=== PATIENT | male | born 1970 | race Caucasian/White ===

== ENCOUNTER 2020-09-20 10:53 | Outpatient (REF) | payer OTHER, SELFPAY ==
[2020-09-20 11:43] LABS: MANUAL DIFF FLAG NO
[2020-09-20 11:46] LABS: Basophils Percent Auto 0.7 % (0-2); Eosinophils Percent Auto 0.5 % (0-4); Hematocrit 44.5 % (42-52); Hemoglobin 14.9 g/dl (14.0-18.0); Imm Gran Abs Auto 0.01 X10*3/uL (0.00-0.03); Imm Gran Pct Auto 0.2 % (0.0-0.4); Lymphocytes Absolute Auto 1.2 X10*3/uL (1.2-4.9); Lymphocytes Percent Auto 26.7 % (20-40); Mean Corpuscular HGB Conc 33.5 g/dl (31.0-36.0); Mean Corpuscular Hemoglobin 31.4 pg (27.0-33.0); Mean Corpuscular Volume 93.7 fL (80-98); Mean Platelet Volume 10.5 fL (9.4-12.4); Monocytes Absolute Auto 0.3 X10*3/uL (0.1-1.2); Monocytes Percent Auto 5.9 % (2-11); Neutrophils Absolute Auto 2.9 X10*3/uL (2.0-8.3); Platelet Count 186 X10*3/uL (160-400); Red Blood Count 4.75 X10*6/uL (4.60-5.80); Red Cell Distribution Width 12.4 % (11.0-16.0); White Blood Count 4.4 X10*3/uL (4.8-10.8)
[2020-09-20 12:08] LABS: Alanine Aminotransferase 14 U/L (0-40); Albumin Level 4.5 g/dL (3.5-5.0); Alkaline Phosphatase 59 U/L (39-117); Anion Gap 13 (12-20); Aspartate Amino Transferase 16 U/L (5-37); Bilirubin Total 0.9 mg/dL (0.0-1.0); Blood Urea Nitrogen 18 mg/dL (9-16); Calcium 9.5 mg/dL (8.4-10.2); Carbon Dioxide 27 mmol/L (22-29); Chloride 108 mmol/L (96-108); Cholesterol 171 mg/dL; Estimated Glomerular Filt Rate > 60; Glucose Fasting 87 mg/dL (60-99); HDL Cholesterol 45 mg/dL; LDL Cholesterol Calculated 120 mg/dl; Potassium 5.1 mmol/L (3.3-5.1); Sodium 143 mmol/L (135-145); Total Protein 7.1 g/dL (6.5-8.0); Triglycerides 34 mg/dL
[2020-09-20 12:29] LABS: Prostate Specific Antigen Scr 1.31 ng/mL (<0.05-4.0); TSH reflex Free T4 1.01 uIU/mL (0.32-4.0); Vitamin D 25-OH Total 71.3 ng/mL (>30)
[2020-09-20 12:50] LABS: Glucose Urine UA NEG (NEG); Leukocyte Esterase Urine NEG (NEG); Nitrite Urine NEG (NEG); Specific Gravity - Urine >= 1.030 (1.005-1.025); Urine Blood NEG (NEG); Urine Ketones NEG (NEG); Urine Protein NEG (NEG-TRACE)
[2020-09-20 12:52] LABS: Appearance Urine CLEAR; Color Urine YELLOW
== END 2020-09-20 10:54 | disposition home or self-care (01) ==
LOC: HO.LAB 10:53
PROVIDERS: PCP Internal Medicine; Visit Provider Internal Medicine
DX: Z00.00 Encounter for general adult medical examination without abnormal findings (principal); E55.9 Vitamin D deficiency, unspecified; R19.5 Other fecal abnormalities
CPT/HCPCS: 36415; 80053; 80061; 81003; 82306; 84153; 84443; 85025

== ENCOUNTER 2021-09-17 10:22 | Outpatient (REF) | payer OTHER, SELFPAY ==
[2021-09-17 10:46] LABS: MANUAL DIFF FLAG NO
[2021-09-17 11:47] LABS: Basophils Percent Auto 0.7 % (0-2); Eosinophils Percent Auto 0.2 % (0-4); Hemoglobin 14.7 g/dl (14.0-18.0); Imm Gran Abs Auto 0.01 X10*3/uL (0.00-0.03); Imm Gran Pct Auto 0.2 % (0.0-0.4); Lymphocytes Percent Auto 16.3 % (20-40); Mean Corpuscular HGB Conc 33.4 g/dl (31.0-36.0); Mean Corpuscular Hemoglobin 31.2 pg (27.0-33.0); Mean Corpuscular Volume 93.4 fL (80.0-98.0); Mean Platelet Volume 10.9 fL (9.4-12.4); Monocytes Absolute Auto 0.3 X10*3/uL (0.1-1.2); Monocytes Percent Auto 5.1 % (2-11); Neutrophils Absolute Auto 4.6 x10*3/uL (2.0-8.3); Neutrophils Percent Auto 77.5 % (45-73); Platelet Count 191 X10*3/uL (160-400); Red Blood Count 4.71 X10*6/uL (4.60-5.80); Red Cell Distribution Width 12.7 % (11.0-16.0); White Blood Count 5.9 X10*3/uL (4.8-10.8)
[2021-09-17 12:30] LABS: Alanine Aminotransferase 11 U/L (0-40); Albumin Level 4.2 g/dL (3.5-5.0); Alkaline Phosphatase 59 U/L (39-117); Anion Gap 14 (12-20); Aspartate Amino Transferase 14 U/L (5-37); Bilirubin Total 0.8 mg/dL (0.0-1.0); Blood Urea Nitrogen 12 mg/dL (9-16); Calcium 8.9 mg/dL (8.4-10.2); Carbon Dioxide 27 mmol/L (22-29); Chloride 104 mmol/L (96-108); Cholesterol 157 mg/dL; Estimated Glomerular Filt Rate > 60; Glucose Fasting 84 mg/dL (60-99); HDL Cholesterol 46 mg/dL; LDL Cholesterol Calculated 103 mg/dl; Potassium 4.5 mmol/L (3.3-5.1); Sodium 140 mmol/L (135-145); Total Protein 6.9 g/dL (6.5-8.0); Triglycerides 43 mg/dL
[2021-09-17 12:38] LABS: Prostate Specific Antigen 1.26 ng/mL (<0.05-4.0); TSH reflex Free T4 1.51 uIU/mL (0.32-4.0); Vitamin D 25-OH Total 53.8 ng/mL (>30)
[2021-09-17 13:08] LABS: Folate 17.4 ng/mL (> or = 4.0); Vitamin B12 372 pg/mL (200-900)
== END 2021-09-17 10:23 | disposition home or self-care (01) ==
LOC: HO.LAB 10:22
PROVIDERS: PCP Internal Medicine; Visit Provider Nurse Practitioner Family
DX: Z00.00 Encounter for general adult medical examination without abnormal findings (principal); Z12.5 Encounter for screening for malignant neoplasm of prostate; Z13.29 Encounter for screening for other suspected endocrine disorder; Z13.220 Encounter for screening for lipoid disorders; E55.9 Vitamin D deficiency, unspecified
CPT/HCPCS: 36415; 80053; 80061; 82306; 82607; 82746; 84153; 84443; 85025

== ENCOUNTER 2022-09-04 09:00 | Outpatient (AMB) | payer OTHER, SELFPAY ==
--- NOTE | 2022-09-04 09:03 | A.OFFPC_ITS ---
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: No Accompanied by: Self / Same As Patient Allergies No Known Allergies [No Known Allergies*] Allergy (Verified 09/04/22 09:05) Medication List - Last Reconciled 09/04/22 by Kailash Sorenson MD No Known Home Meds Tobacco use date assessed: 09/04/22 Dental Screening Dental Screen Date: 09/04/22 Did you have a dental visit in the last 12 months?: Yes Did you have a dental problem in the last 6 months where you did not have access to dental care?: No Was dental information given to patient?: Patient has dentist HPI PE HPI Details Patient comes in today for his annual physical examination Relates that he strained his right elbow about 4 months ago (thinks that he has a tennis elbow ) and that his elbow is still bothering him at present Admits that he has not really cut back on activities that involves extended use of his right arm as he is right-handed Has been doing some physical therapy exercises on his own for the past few weeks, which he states help but is still not able to get his elbow issues resolved completely States that he feels okay otherwise He denies any headaches or dizziness Denies any chest pains, no SOB No nausea/vomiting, no abdominal pain No change in bowel habits noted Denies any acute urinary symptoms Had a negative Cologuard test done a couple of years ago in 2020; still does not wish to go for a regular screening colonoscopy at this time [facility] Medical History Vitamin D deficiency Surgical History History of left knee surgery History of rotator cuff surgery (~01/2016) Status post arthroscopy of right shoulder Family History Mother No problems noted. 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 1. Little interest or pleasure in doing things: not at all 2. Feeling down, depressed, or hopeless: not at all 3. Trouble falling or staying asleep, or sleeping too much: not at all 4. Feeling tired or having little energy: not at all 5. Poor appetite or overeating: not at all 6. Feeling bad about yourself - or that you are a failure or have let yourself or your family down: not at all 7. Trouble concentrating on things, such as reading the newspaper or watching television: not at all 8. Moving or speaking so slowly that other people could have noticed. Or the opposite - being so fidgety or restless that you have been moving around a lot more than usual: not at all 9. Thoughts that you would be better off or of hurting yourself in some way: not at all Total score: 0 Depression Screening Interpretation: Negative 84818 - PHQ-9 Billing: Yes Source: Developed by Drs. Javier Dang, Arabella Mckeon, Adams Archibald and colleagues, with an educational shant from [employer]. Thrive Questionnaire Date Thrive assessed: 09/04/22 I am a: Patient What is your living situation today?: I have a steady place to live Within the past 12 months, did the food you bought not last and you didn't have the money to get more?: Never true Within the past 12 months, did you worry whether your food would run out before you got money to buy more?: Never true Do you have trouble paying for medicines?: No Do you have trouble getting transportation to medical appointments?: No Do you have trouble paying your heating and electricity bill?: No Do you have trouble taking care of your child, family member or friend?: No Do you have trouble with day-to-day activities such as bathing, preparing meals, shopping, managing finances, etc.?: No Are you currently unemployed and looking for a job?: No Are you interested in more education?: No Please select the resources that you would like help with: None Currently or been in a relationship where the following occur: no concerns reported AUDIT C Alcohol Use Questionnaire (AUDIT-C) 1. How often do you have a drink containing alcohol?: Monthly or less 2. How many drinks containing alcohol do you have on a typical day when you are drinking?: 1 or 2 3. How often do you have six or more drinks on one occasion?: Never Total Score: 1 Score Reviewed/Action Taken: Yes FLORENCIO-7 AMB Questionnaire FLORENCIO-7 Date FLORENCIO - 7 assessed: 09/04/22 Feeling nervous, anxious, or on edge: 0 = Not at all Not being able to stop or control worryin = Not at all Worrying too much about different things: 0 = Not at all Trouble relaxin = Not at all Being so restless that it is hard to sit still: 0 = Not at all Becoming easily annoyed or irritable: 0 = Not at all Feeling afraid as if something awful might happen: 0 = Not at all Total FLORENCIO-7 score (0-4 normal; 5-9 mild; 10-14 moderate; 15-21 severe): 0 Source: Developed by Drs. Javier Dang, Arabella Mckeon, Adams Archibald and colleagues, with an educational shant from [employer]. FLORENCIO-7 Assessment Billing FLORENCIO-7 Assessment Tool: FLORENCIO-7 Assessment 03160 Review of Systems Const Denies chills, Denies fatigue, Denies fever(s), Denies headache(s), Denies malaise and Denies weakness Eyes Denies blurry vision, Denies change in vision, Denies irritation and Denies itchy eyes ENT Denies dysphagia, Denies dizziness, Denies otalgia, Denies headache(s), Denies nasal congestion, Denies neck pain, Denies odynophagia and Denies sore throat Card Denies chest pain, Denies rapid heart rate, Denies irregular heart rhythm, Denies palpitations and Denies dyspnea Resp Denies chest congestion, Denies cough, Denies dyspnea and Denies wheezing GI Denies abdominal pain, Denies bloating, Denies constipation, Denies dysphagia, Denies heartburn, Denies diarrhea, Denies nausea, Denies odynophagia and Denies vomiting Denies hematuria, Denies difficulty urinating, Denies dysuria, Denies urinary frequency and Denies urinary urgency Musc Denies back pain, Reports arthralgias (over the right elbow, recurrent), Denies joint swelling, Denies muscle weakness and Denies neck pain Skin/Breast Denies change in pigmentation, Denies lesions, Denies rash and Denies unusual bruising Neuro Denies dizziness, Denies headache(s), Denies paresthesias and Denies weakness Endo Denies fatigue and Denies palpitations Aller/Immun Denies itchy eyes and Denies wheezing Physical exam (Primary Care) Vital Signs: Oxygen Delivery Method Room Air 09/04/22 09:04 Tobacco/Smoking Status: Tobacco use Status Tobacco use date assessed 09/17/21 09/17/21 09:59 Patient Tobacco Use Status Never used Tobacco 09/17/21 09:59 Depression Screening Interpretation: Negative Thrive Assessment: Date of Thrive Assessment Date Thrive assessed 09/17/21 09/17/21 09:59 Currently or been in a relationship where the following occur: no concerns reported Const General: no acute distress, alert and awake Orientation/consciousness: patient oriented x3 HENMT Head: Yes normocephalic and Yes atraumatic Ears: external ears normal, TM's normal bilaterally and EAC's normal General nose exam: No nasal discharge present Face and sinus: Yes normal facial exam and Yes sinuses nontender Teeth and gingiva: dentition normal Throat: Yes posterior oropharynx normal and Yes tonsils normal (no TP congestion) Eyes Eyelids: Yes eyelids normal Conjunctivae: conjunctivae normal Pupils: Equal, round and reactive pupils present EOM: EOMs intact bilaterally Neck Neck: Yes no lymphadenopathy and Yes supple Thyroid: Thyroid normal Resp Auscultation: clear to auscultation bilaterally, no rales and no wheezes Cardio Rate: regular rate Rhythm: regular rhythm Heart sounds: no murmurs GI Palpation (GI): Soft to palpation, nontender and No hepatosplenomegaly present Auscultation: normal bowel sounds General: Yes no CVA tenderness Back/Spine/Pelvis Back: no CVA tenderness Thoracic/Lumbar Spine: thoracic and lumbar spine normal to inspection Skin Lesions: no lesions Rashes: no rashes Neuro General: patient oriented x3, moves all extremities, no focal motor deficits and CN's II-XI intact bilaterally Cranial nerves: Yes Equal, round and reactive pupils present Cognition (Neuro): normal cognition Gait exam (Neuro): Normal gait present Extrem General: Yes no clubbing, cyanosis or edema Right upper extremity: elbow/forearm Details: tenderness Location: of the lateral epicondyle and normal ROM; no swelling Assessment and Plan Assessment & Plan (1) Annual physical exam: Code(s): Z00.00 - Encounter for general adult medical examination without abnormal findings Plan: Check labs Patient had a negative Cologuard test a couple of years ago in 2020; will be due for repeat Cologuard OR screening colonoscopy next year (2) Vitamin D deficiency: Code(s): E55.9 - Vitamin D deficiency, unspecified Plan: Corrected when checked last year Will recheck Vitamin D level for follow up (3) Right elbow pain: Code(s): M25.521 - Pain in right elbow Plan: Most likely due to lateral epicondylitis Will send him for x-rays of the right elbow for further evaluation Recommend trial of physical therapy but patient states that he has been doing what he thinks physical therapy will do for him and would rather not go so he does not have to take time off from work Will print out instead for patient a physical therapy regimen for him to follow up as best as he can so the therapy that he is doing on his own is more structured; reminded to avoid any activities that can aggravate his elbow as much as possible, at least for the next few weeks Advised that he can call at any time if he feels that his elbow injury is getting worse May take OTC NSAIDs as needed Plan To return in 1 year for his next annual physical examination Orders: Orders XR elbow RT min 3V Today M25.521 - Pain in right elbow Comprehensive [place]. Panel Fast Today R53.83 - Other fatigue, Z00.00 - Encounter for general adult medical examination without abnormal findings Lipid Panel Today E78.00 - Pure hypercholesterolemia, unspecified, Z00.00 - Encounter for general adult medical examination without abnormal findings Prostate Specific Antigen Scr Today Z00.00 - Encounter for general adult medical examination without abnormal findings TSH reflex Free T4 Today R53.83 - Other fatigue, Z00.00 - Encounter for general adult medical examination without abnormal findings Vitamin D 25-OH Total Today E55.9 - Vitamin D deficiency, unspecified, Z00.00 - Encounter for general adult medical examination without abnormal findings Complete Blood Count Auto Diff Today Z00.00 - Encounter for general adult medical examination without abnormal findings UA CC w/rflx Micro + Cult Today R30.0 - Dysuria, Z00.00 - Encounter for general adult medical examination without abnormal findings Coding Level of Care Code Est Pt Prev Care 40-64y(76583) Diagnoses Annual physical exam Z00.00 Vitamin D deficiency E55.9 Right elbow pain M25.521 Additional Codes FLORENCIO-7 Assessment Billing - FLORENCIO-7 Assessment Tool: FLORENCIO-7 Assessment 12569 ([id number])
[2022-09-04 09:04] VITALS: BP 110/60; O2SAT 98; BMI 24.1
== END 2022-09-04 09:35 | disposition home or self-care (01) ==
PROVIDERS: PCP Internal Medicine; Visit Provider Internal Medicine
DX: Z00.00 Encounter for general adult medical examination without abnormal findings (principal); E55.9 Vitamin D deficiency, unspecified; M25.521 Pain in right elbow
CPT/HCPCS: 99396

== ENCOUNTER 2022-09-04 09:41 | Outpatient (REF) | payer OTHER, SELFPAY ==
--- NOTE | ~2022-09-04 | XR_ITS ---
EXAMINATION: XR ELBOW, RIGHT CLINICAL INFORMATION: Pain. COMPARISON: None available. TECHNIQUE: AP, lateral, and oblique views of the right elbow. FINDINGS: The bones and soft tissues are normal. No fracture or joint effusion. Alignment is anatomic. Joint spaces are maintained. A small enthesophyte arises from the olecranon process. XR/XR elbow RT min 3V IMPRESSION: Unremarkable right elbow.
[2022-09-04 09:53] LABS: MANUAL DIFF FLAG NO
[2022-09-04 10:21] LABS: Basophils Percent Auto 0.8 % (0-2); Eosinophils Percent Auto 0.8 % (0-4); Hemoglobin 14.1 g/dl (14.0-18.0); Imm Gran Abs Auto 0.01 X10*3/uL (0.00-0.03); Imm Gran Pct Auto 0.3 % (0.0-0.4); Lymphocytes Absolute Auto 1.2 X10*3/uL (1.2-4.9); Lymphocytes Percent Auto 31.2 % (20-40); Mean Corpuscular HGB Conc 32.8 g/dl (31.0-36.0); Mean Corpuscular Hemoglobin 31.2 pg (27.0-33.0); Mean Corpuscular Volume 95.1 fL (80.0-98.0); Mean Platelet Volume 10.7 fL (9.4-12.4); Monocytes Absolute Auto 0.2 X10*3/uL (0.1-1.2); Monocytes Percent Auto 6.2 % (2-11); Neutrophils Absolute Auto 2.2 x10*3/uL (2.0-8.3); Neutrophils Percent Auto 60.7 % (45-73); Platelet Count 192 X10*3/uL (160-400); Red Blood Count 4.52 X10*6/uL (4.60-5.80); Red Cell Distribution Width 13.3 % (11.0-16.0); White Blood Count 3.7 X10*3/uL (4.8-10.8)
[2022-09-04 10:22] LABS: Appearance Urine Turbid; Color Urine Yellow; Glucose Urine UA Negative (Negative); Leukocyte Esterase Urine Negative (Negative); Nitrite Urine Negative (Negative); Specific Gravity - Urine 1.025 (1.005-1.025); Urine Blood Negative (Negative); Urine Ketones Negative (Negative); Urine Protein Negative (Neg-Trace)
[2022-09-04 11:00] LABS: Alanine Aminotransferase 14 U/L (0-40); Albumin Level 4.2 g/dL (3.5-5.0); Alkaline Phosphatase 62 U/L (39-117); Anion Gap 14 (12-20); Aspartate Amino Transferase 18 U/L (5-37); Bilirubin Total 0.7 mg/dL (0.0-1.0); Blood Urea Nitrogen 17 mg/dL (9-16); Calcium 9.2 mg/dL (8.4-10.2); Carbon Dioxide 25 mmol/L (22-29); Chloride 107 mmol/L (96-108); Cholesterol 173 mg/dL; Estimated Glomerular Filt Rate > 60; Glucose Fasting 88 mg/dL (60-99); HDL Cholesterol 49 mg/dL; LDL Cholesterol Calculated 116 mg/dl; Potassium 4.6 mmol/L (3.3-5.1); Sodium 141 mmol/L (135-145); Total Protein 6.9 g/dL (6.5-8.0); Triglycerides 43 mg/dL
[2022-09-04 11:16] LABS: Prostate Specific Antigen Scr 1.28 ng/mL (<0.05-4.0); TSH reflex Free T4 1.19 uIU/mL (0.32-4.0); Vitamin D 25-OH Total 67.7 ng/mL (>30)
== END 2022-09-04 09:42 | disposition home or self-care (01) ==
LOC: HO.LAB 09:41
PROVIDERS: PCP Internal Medicine; Visit Provider Internal Medicine
DX: Z12.5 Encounter for screening for malignant neoplasm of prostate (principal); M25.521 Pain in right elbow; E78.00 Pure hypercholesterolemia, unspecified; E55.9 Vitamin D deficiency, unspecified; R53.83 Other fatigue; R30.0 Dysuria; Z00.00 Encounter for general adult medical examination without abnormal findings
CPT/HCPCS: 36415; 73080; 80053; 80061; 81003; 82306; 84153; 84443; 85025

== ENCOUNTER 2022-12-11 11:28 | Outpatient (AMB) | payer OTHER, SELFPAY ==
--- NOTE | 2022-12-11 11:31 | MHC.OFFVIS ---
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 Patient reports that he has had onoging elbow pain for about 7 months now. He explains that he is having. His pain is felt on the lateral aspect of the elbow worse with activity and better with rest. he is not taking any medication for his pain. 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 He complains of pain in his right elbow & forearm primarily with grasping, lifting, and gripping activities. He has been doing home exercises for suspected Tennis elbow since April, and his PCP provided a handout of exercises he can perform. He did not want to take time off of work for formal PT. He denies any prior treatment and is not taking NSAIDs. He says he found no relief wearing a counter-force brace. He says it is difficult to not use his arm as he is right-handed, and he was a member of a Golf league so was frequently playing 9-holes over the summer. He says he made his pain worse at times by lifting dumbbells when he was bored of not doing anything He is planning to go on vacation next week and is unsure about receiving injections. 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 [facility] Medical History Vitamin D deficiency Surgical History History of rotator cuff surgery (~01/2016) History of left knee surgery Status post arthroscopy of right shoulder Family History Mother No problems noted. 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 Cognitive needs: No Hearing needs: No Vision needs: Yes (reading) Review of Systems Const All systems reviewed & are unremarkable except as noted in HPI and below Physical Exam Vital Signs: BMI result Body Mass Index 24.1 Const General: no acute distress, alert and awake Orientation/consciousness: patient oriented x3 HEENT Head: Yes normocephalic and Yes atraumatic Eyes EOM: EOMs intact bilaterally Resp Effort & Inspection: normal respiratory effort and able to speak in complete sentences Cardio Jugular venous distension: no JVD Skin General skin exam: turgor normal Rashes: no rashes Neuro General: patient oriented x3 Extrem Other: Right Elbow: Pain with resisted wrist ext ttp lateral epicondyle Psych Appearance: grossly normal Affect: normal affect Attitude: cooperative Office Procedures Joint Injection/Drain Joint Injection/Drain Details: Injected 1 mL of Decadron and 1 mL 1% lidocaine and 1 mL of 0.25% Marcaine. Site was prepped using aseptic technique. Patient tolerated the procedure well. Primary Site: right tennis elbow Approach Used: posterolateral Coding 59954 - Epicondyle Procedure code (CPT) selection complete Results Reviewed Results Reviewed: 12/11/22 11:48 BUPivacaine MPF 0.25 % [Sensorcaine-MPF 0.25% 10 ML] 10 ml .ROUTE .STK-MED ONE Lidocaine HCl 1 % [Xylocaine 1 %] 2 ml .ROUTE .STK-MED ONE dexAMETHasone sod phosphate [Decadron] 4 mg .ROUTE .STK-MED ONE Assessment & Plan Assessment & Plan (1) Right lateral epicondylitis: Code(s): M77.11 - Lateral epicondylitis, right elbow Plan: This is a 52 year old man with right lateral epicondylitis. He has pain with use of his arm, primarily gripping and lifting activities. He denies any prior treatment, has been doing home exercise and has not been taking NSAIDs. I discussed his diagnosis and treatment options, including PRP injections. I recommend activity modification and bracing. I injected his right lateral epicondyle, which he tolerated well, and he should continue to work on stretching exercises at home. I explained that recovery can take several months and he should limit or avoid activities such as gripping with his RUE when possible. He can follow up prn. Plan Scribed for Colin Garcia MD by Grey King, lpn medical assistant, on 12/11/22 at 11:40 AM, EST. Coding Level of Care Code New Pt Level 4 (57191) Diagnoses Right lateral epicondylitis M77.11 CPT Codes Coding - Joint 2: 19986 - Epicondyle ([id number])
[2022-12-11 11:34] VITALS: BMI 24.1
== END 2022-12-11 12:22 | disposition home or self-care (01) ==
PROVIDERS: PCP Internal Medicine; Visit Provider Orthopaedic Surgery
DX: M77.11 Lateral epicondylitis, right elbow (principal)
CPT/HCPCS: 20550; 99204

== ENCOUNTER → 2022-12-11 11:28 | Outpatient (BNVA) | payer OTHER, SELFPAY | PROVIDERS: PCP Internal Medicine; Visit Provider Orthopaedic Surgery | DX: M77.11 Lateral epicondylitis, right elbow (principal); E55.9 Vitamin D deficiency, unspecified | CPT/HCPCS: 20550; J0665; J1100 ==

== ENCOUNTER 2023-01-22 09:30 | Outpatient (AMB) | payer OTHER, SELFPAY ==
--- NOTE | 2023-01-22 09:36 | MHC.OFFVIS ---
Intake Intake Visit Reasons: Right Lateral Epicondylitis Injection Intake Note: Kenny is a 52 year old male who presents today for a follow up of his right lateral epicondylitis. Last injected on 12/11/22. Patient also reports that he injured the left shoulder on wednesday01/16/23. He has history of RTC repair and is concerned that he reinjured. Allergies No Known Allergies [No Known Allergies*] Allergy (Verified 01/22/23 09:39) HPI Right Lateral Epicondylitis Injection HPI Details Kenny is a 52 year old right hand dominant man who returns to discuss his right lateral epicondylitis. He was last seen, and injected, on 12/11/22, with some relief. He continues to have pain with use of his arm, worse with gripping activities. He also says he hurt his left shoulder on 01/16/23. He has a hx of a left RTC repair and is worried he may have re-injured his shoulder. [facility] Medical History Vitamin D deficiency Surgical History History of rotator cuff surgery (~01/2016) History of left knee surgery Status post arthroscopy of right shoulder Family History Mother No problems noted. 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 Cognitive needs: No Hearing needs: No Vision needs: Yes (reading) Review of Systems Const All systems reviewed & are unremarkable except as noted in HPI and below Physical Exam Const General: no acute distress, alert and awake Orientation/consciousness: patient oriented x3 HEENT Head: Yes normocephalic and Yes atraumatic Eyes EOM: EOMs intact bilaterally Resp Effort & Inspection: normal respiratory effort and able to speak in complete sentences Cardio Jugular venous distension: no JVD Skin General skin exam: turgor normal Rashes: no rashes Neuro General: patient oriented x3 Extrem Other: mild ttp right lateral epicondyle and mildly + dynamic wrist ext test left shoulder with painful but negative empty can Psych Appearance: grossly normal Affect: normal affect Attitude: cooperative Assessment & Plan Assessment & Plan (1) Right lateral epicondylitis: Code(s): M77.11 - Lateral epicondylitis, right elbow Plan: We had a long discussion regarding his right elbow. He has chronic mild symptoms and did not feel any better after injection. i recommend activity modification and reserve injection forflare ups. We discussed prp. He will consider this (2) Left shoulder pain: Code(s): M25.512 - Pain in left shoulder Plan: Acute pain without evidence of internal derangement. Plan Scribed for Colin Garcia MD by Grey King, medical insurance claims processor, on 01/22/23 at 9:45 AM, EST. Coding Level of Care Code Est Pt Level 3 (13249) Diagnoses Right lateral epicondylitis M77.11 Left shoulder pain M25.512
== END 2023-01-22 10:11 | disposition home or self-care (01) ==
PROVIDERS: PCP Internal Medicine; Visit Provider Orthopaedic Surgery
DX: M77.11 Lateral epicondylitis, right elbow (principal); M25.512 Pain in left shoulder
CPT/HCPCS: 99213

== ENCOUNTER → 2023-01-22 09:30 | Outpatient (BNVA) | payer OTHER, SELFPAY | PROVIDERS: PCP Internal Medicine; Visit Provider Orthopaedic Surgery | DX: M77.11 Lateral epicondylitis, right elbow (principal); M25.512 Pain in left shoulder | CPT/HCPCS: J0665; J1100 ==

== ENCOUNTER 2023-07-23 08:58 | Outpatient (AMB) | payer OTHER, SELFPAY ==
--- NOTE | 2023-07-23 09:16 | A.OFFPC_ITS ---
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: No Accompanied by: Self / Same As Patient Allergies No Known Allergies [No Known Allergies*] Allergy (Verified 07/23/23 09:27) Medication List - Last Reconciled 07/23/23 by Kailash Sorenson MD No Known Home Meds Tobacco use date assessed: 07/23/23 Dental Screening Dental Screen Date: 07/23/23 Did you have a dental visit in the last 12 months?: Yes Did you have a dental problem in the last 6 months where you did not have access to dental care?: No Was dental information given to patient?: Patient has dentist HPI Annual Exam HPI Details Patient comes in today for his annual physical examination States that he feels okay but still has recurrent right elbow pain He denies any headaches or dizziness Denies any chest pains, no SOB No nausea/vomiting, no abdominal pain No change in bowel habits noted Denies any acute urinary symptoms PFSH Medical History Vitamin D deficiency Surgical History History of rotator cuff surgery (~01/2016) History of left knee surgery Status post arthroscopy of right shoulder Family History Mother No problems noted. 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 1. Little interest or pleasure in doing things: not at all 2. Feeling down, depressed, or hopeless: not at all 3. Trouble falling or staying asleep, or sleeping too much: not at all 4. Feeling tired or having little energy: not at all 5. Poor appetite or overeating: not at all 6. Feeling bad about yourself - or that you are a failure or have let yourself or your family down: not at all 7. Trouble concentrating on things, such as reading the newspaper or watching television: not at all 8. Moving or speaking so slowly that other people could have noticed. Or the opposite - being so fidgety or restless that you have been moving around a lot more than usual: not at all 9. Thoughts that you would be better off or of hurting yourself in some way: not at all Total score: 0 Depression Screening Interpretation: Negative Depression Screening Done: Yes 79938 - PHQ-9 Billing: Yes Source: Developed by Drs. Javier Dang, Arabella Mckeon, Adams Archibald and colleagues, with an educational shant from [employer]. Thrive Questionnaire Date Thrive assessed: 07/23/23 I am a: Patient What is your living situation today?: I have a steady place to live Within the past 12 months, did the food you bought not last and you didn't have the money to get more?: Never true Within the past 12 months, did you worry whether your food would run out before you got money to buy more?: Never true Do you have trouble paying for medicines?: No Do you have trouble getting transportation to medical appointments?: No Do you have trouble paying your heating and electricity bill?: No Do you have trouble taking care of your child, family member or friend?: No Do you have trouble with day-to-day activities such as bathing, preparing meals, shopping, managing finances, etc.?: No Are you currently unemployed and looking for a job?: No Are you interested in more education?: No Please select the resources that you would like help with: None Currently or been in a relationship where the following occur: no concerns reported THRIVE Score: 0 AUDIT C Alcohol Use Questionnaire (AUDIT-C) 1. How often do you have a drink containing alcohol?: Monthly or less 2. How many drinks containing alcohol do you have on a typical day when you are drinking?: 1 or 2 3. How often do you have six or more drinks on one occasion?: Never Total Score: 1 Score Reviewed/Action Taken: Yes FLORENCIO-7 AMB Questionnaire FLORENCIO-7 Date FLORENCIO - 7 assessed: 07/23/23 Feeling nervous, anxious, or on edge: 0 = Not at all Not being able to stop or control worryin = Not at all Worrying too much about different things: 0 = Not at all Trouble relaxin = Not at all Being so restless that it is hard to sit still: 0 = Not at all Becoming easily annoyed or irritable: 0 = Not at all Feeling afraid as if something awful might happen: 0 = Not at all Total FLORENCIO-7 score (0-4 normal; 5-9 mild; 10-14 moderate; 15-21 severe): 0 Source: Developed by Drs. Javier Dang, Arabella Mckeon, Adams Archibald and colleagues, with an educational shant from [employer]. FLORENCIO-7 Assessment Billing FLORENCIO-7 Assessment Tool: FLORENCIO-7 Assessment 07995 Review of Systems Const Denies chills, Denies fatigue, Denies fever(s), Denies headache(s), Denies malaise and Denies weakness Eyes Denies blurry vision, Denies change in vision, Denies irritation and Denies itchy eyes ENT Denies dysphagia, Denies dizziness, Denies otalgia, Denies headache(s), Denies nasal congestion, Denies neck pain, Denies odynophagia and Denies sore throat Card Denies chest pain, Denies rapid heart rate, Denies irregular heart rhythm, Denies palpitations and Denies dyspnea Resp Denies chest congestion, Denies cough, Denies dyspnea and Denies wheezing GI Denies abdominal pain, Denies bloating, Denies constipation, Denies dysphagia, Denies heartburn, Denies diarrhea, Denies nausea, Denies odynophagia and Denies vomiting Denies hematuria, Denies difficulty urinating, Denies dysuria, Denies urinary frequency and Denies urinary urgency Musc Denies back pain, Reports arthralgias (on and off, over the right elbow), Denies joint swelling, Denies muscle weakness and Denies neck pain Skin/Breast Denies change in pigmentation, Denies lesions, Denies rash and Denies unusual bruising Neuro Denies dizziness, Denies headache(s), Denies paresthesias and Denies weakness Endo Denies fatigue and Denies palpitations Aller/Immun Denies itchy eyes and Denies wheezing Physical exam (Primary Care) Vital Signs: Last Vital Signs Pulse 58 07/23/23 09:19 BP 108/68 07/23/23 09:19 Pulse Ox 99 07/23/23 09:19 Oxygen Delivery Method Room Air 07/23/23 09:19 BMI result Body Mass Index 24.3 Tobacco/Smoking Status: Tobacco use Status Tobacco use date assessed 07/23/23 07/23/23 09:24 Patient Tobacco Use Status Never used Tobacco 07/23/23 09:16 e-Cigarette/Vaping Use Never Used 07/23/23 09:24 PHQ-9: PHQ-9 Score PHQ-9: Total score 0 07/23/23 09:24 Depression Screening Interpretation: Negative Thrive Assessment: Date of Thrive Assessment Date Thrive assessed 07/23/23 07/23/23 09:24 Currently or been in a relationship where the following occur: no concerns reported Const General: no acute distress, alert and awake Orientation/consciousness: patient oriented x3 HENMT Head: Yes normocephalic and Yes atraumatic Ears: external ears normal, TM's normal bilaterally and EAC's normal General nose exam: No nasal discharge present Face and sinus: Yes normal facial exam and Yes sinuses nontender Teeth and gingiva: dentition normal Throat: Yes posterior oropharynx normal and Yes tonsils normal (no TP congestion) Eyes Eyelids: Yes eyelids normal Conjunctivae: conjunctivae normal Pupils: Equal, round and reactive pupils present EOM: EOMs intact bilaterally Neck Neck: Yes no lymphadenopathy and Yes supple Thyroid: Thyroid normal Resp Auscultation: clear to auscultation bilaterally, no rales and no wheezes Cardio Rate: regular rate Rhythm: regular rhythm Heart sounds: no murmurs GI Palpation (GI): Soft to palpation, nontender and No hepatosplenomegaly present Auscultation: normal bowel sounds General: Yes no CVA tenderness Back/Spine/Pelvis Back: no CVA tenderness Thoracic/Lumbar Spine: thoracic and lumbar spine normal to inspection Skin Lesions: no lesions Rashes: no rashes Neuro General: patient oriented x3, moves all extremities, no focal motor deficits and CN's II-XI intact bilaterally Cranial nerves: Yes Equal, round and reactive pupils present Cognition (Neuro): normal cognition Gait exam (Neuro): Normal gait present Extrem General: Yes no clubbing, cyanosis or edema Right upper extremity: elbow/forearm Details: tenderness Location: of the lateral epicondyle Assessment and Plan Assessment & Plan (1) Annual physical exam: Code(s): Z00.00 - Encounter for general adult medical examination without abnormal findings Plan: Check labs Patient had a negative Cologuard test a few years ago in 2020 He is now due for repeat Cologuard OR screening colonoscopy (2) Vitamin D deficiency: Code(s): E55.9 - Vitamin D deficiency, unspecified Plan: Corrected when checked last year Will recheck his Vitamin D level for follow up (3) Right elbow pain: Code(s): M25.521 - Pain in right elbow Plan: Due to lateral epicondylitis X-rays of the right elbow done a few months ago came out completely normal He received a cortisone injection from Dr. Garcia a few months ago with some relief but admits that he started doing some activities that likely aggravated his issue Have advised patient that if his elbow continues to bother him a lot and is affecting his daily activities, he should check back again with orthopedics and consider getting another cortisone injection to help relieve his elbow pain (4) Colon cancer screening: Code(s): Z12.11 - Encounter for screening for malignant neoplasm of colon Plan: Patient had a negative Cologuard test a few years ago in 2020 He is now due for repeat Cologuard OR screening colonoscopy - patient opted to get repeat Cologuard testing done at this time and will order test for him Plan To return in 1 year for his next annual physical examination Orders: Orders Prostate Specific Antigen Scr Today Z00.00 - Encounter for general adult medical examination without abnormal findings Complete Blood Count Auto Diff Today D64.9 - Anemia, unspecified, Z00.00 - Encounter for general adult medical examination without abnormal findings Comprehensive [place]. Panel Fast Today E78.00 - Pure hypercholesterolemia, unspecified, Z00.00 - Encounter for general adult medical examination without abnormal findings Lipid Panel Today E78.00 - Pure hypercholesterolemia, unspecified, Z00.00 - Encounter for general adult medical examination without abnormal findings TSH reflex Free T4 Today E78.00 - Pure hypercholesterolemia, unspecified, Z 00.00 - Encounter for general adult medical examination without abnormal findings UA CC w/rflx Micro + Cult Today R30.0 - Dysuria, Z00.00 - Encounter for general adult medical examination without abnormal findings Vitamin D 25-OH Total Today E55.9 - Vitamin D deficiency, unspecified, Z00.00 - Encounter for general adult medical examination without abnormal findings Referrals Cologuard Test Z12.11 - Encounter for screening for malignant neoplasm of colon, Z12.12 - Encounter for screening for malignant neoplasm of rectum Review Patient declined Colonoscopy: 07/23/23 Coding Level of Care Code Est Pt Prev Care 40-64y(42409) Diagnoses Annual physical exam Z00.00 Vitamin D deficiency E55.9 Right elbow pain M25.521 Colon cancer screening Z12.11 Additional Codes FLORENCIO-7 Assessment Billing - FLORENCIO-7 Assessment Tool: FLORENCIO-7 Assessment [id number] ([id number])
[2023-07-23 09:19] VITALS: BP 108/68; PULSE 58; O2SAT 99; BMI 24.3
== END 2023-07-23 09:42 | disposition home or self-care (01) ==
PROVIDERS: PCP Internal Medicine; Visit Provider Internal Medicine
DX: Z00.00 Encounter for general adult medical examination without abnormal findings (principal); E55.9 Vitamin D deficiency, unspecified; M25.521 Pain in right elbow; Z12.11 Encounter for screening for malignant neoplasm of colon
CPT/HCPCS: 99396

== ENCOUNTER 2023-07-23 09:46 | Outpatient (REF) | payer OTHER, SELFPAY ==
[2023-07-23 09:58] LABS: MANUAL DIFF FLAG NO
[2023-07-23 10:50] LABS: Basophils Percent Auto 0.7 % (0-2); Eosinophils Absolute Auto 0.1 X10*3/uL (0.0-0.4); Eosinophils Percent Auto 1.4 % (0-4); Hematocrit 44.6 % (42.0-52.0); Hemoglobin 15.1 g/dl (14.0-18.0); Imm Gran Abs Auto 0.01 X10*3/uL (0.00-0.03); Imm Gran Pct Auto 0.2 % (0.0-0.4); Lymphocytes Absolute Auto 1.2 X10*3/uL (1.2-4.9); Lymphocytes Percent Auto 28.3 % (20-40); Mean Corpuscular HGB Conc 33.9 g/dl (31.0-36.0); Mean Corpuscular Hemoglobin 31.4 pg (27.0-33.0); Mean Corpuscular Volume 92.7 fL (80.0-98.0); Mean Platelet Volume 10.9 fL (9.4-12.4); Monocytes Absolute Auto 0.3 X10*3/uL (0.1-1.2); Monocytes Percent Auto 6.7 % (2-11); Neutrophils Absolute Auto 2.7 x10*3/uL (2.0-8.3); Neutrophils Percent Auto 62.7 % (45-73); Platelet Count 195 X10*3/uL (160-400); Red Blood Count 4.81 X10*6/uL (4.60-5.80); White Blood Count 4.3 X10*3/uL (4.8-10.8)
[2023-07-23 11:08] LABS: Appearance Urine Clear; Color Urine Yellow; Glucose Urine UA Negative (Negative); Leukocyte Esterase Urine Negative (Negative); Nitrite Urine Negative (Negative); PH 6.5 (5.0-9.0); Specific Gravity - Urine 1.025 (1.005-1.025); Urine Blood Negative (Negative); Urine Ketones Negative (Negative); Urine Protein Negative (Neg-Trace)
[2023-07-23 11:34] LABS: Alanine Aminotransferase 13 U/L (0-40); Albumin Level 4.2 g/dL (3.5-5.0); Alkaline Phosphatase 61 U/L (39-117); Anion Gap 10 (12-20); Aspartate Amino Transferase 15 U/L (5-37); Blood Urea Nitrogen 13 mg/dL (9-16); Calcium 9.3 mg/dL (8.4-10.2); Carbon Dioxide 29 mmol/L (22-29); Chloride 106 mmol/L (96-108); Cholesterol 158 mg/dL (<200); Estimated Glomerular Filt Rate > 60; Glucose Fasting 84 mg/dL (60-99); HDL Cholesterol 42 mg/dL (>40); LDL Cholesterol Calculated 103 mg/dL (<100); Potassium 3.9 mmol/L (3.3-5.1); Sodium 141 mmol/L (135-145); Total Protein 6.9 g/dL (6.5-8.0); Triglycerides 65 mg/dL (<150)
[2023-07-23 11:41] LABS: Prostate Specific Antigen Scr 1.58 ng/mL (<0.05-4.0)
[2023-07-23 11:50] LABS: TSH reflex Free T4 1.06 uIU/mL (0.32-4.0); Vitamin D 25-OH Total 47.7 ng/mL (>30)
== END 2023-07-23 09:47 | disposition home or self-care (01) ==
LOC: HO.LAB 09:46
PROVIDERS: PCP Internal Medicine; Visit Provider Internal Medicine
DX: Z00.00 Encounter for general adult medical examination without abnormal findings (principal); D64.9 Anemia, unspecified; E55.9 Vitamin D deficiency, unspecified; E78.00 Pure hypercholesterolemia, unspecified; R30.0 Dysuria; Z12.5 Encounter for screening for malignant neoplasm of prostate
CPT/HCPCS: 36415; 80053; 80061; 81003; 82306; 84153; 84443; 85025

== ENCOUNTER 2024-09-05 14:29 | Outpatient (AMB) | payer OTHER, SELFPAY ==
[2024-09-05 14:33] VITALS: BP 102/60; PULSE 66; RESP 18; TEMP 36.3; O2SAT 95; BMI 24.8
--- NOTE | 2024-09-05 14:33 | A.OFFPC_ITS ---
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: No Accompanied by: Self / Same As Patient Allergies No Known Allergies (No Known Allergies*) Allergy (Verified 09/05/24 14:43) Medication List - Last Reconciled 09/05/24 by RENUKA Ambriz No Known Home Meds Tobacco use date assessed: 09/05/24 Dental Screening Dental Screen Date: 09/05/24 Did you have a dental visit in the last 12 months?: Yes Did you have a dental problem in the last 6 months where you did not have access to dental care?: No Was dental information given to patient?: Patient has dentist HPI annual exam HPI Details Dentist: up to date [facility] reports that he needs to make an appt Snellen: Right: Left: Corrected vision: reading glasses only STI screening: Colonoscopy: cologuard 2023 that was negative Pap Smer:n/a PHQ-9:n/a Flu: not COVID: no Tdap:2014-due Diet: regular Exercise: The patient is very active The patient is a 54-year-old male presenting for a wellness visit and evaluation of persistent heartburn symptoms. The patient reports experiencing heartburn that began after Easter, with symptoms including angina-like chest pain, shoulder pain, and numbness. The symptoms were exacerbated when lying down and seemed to improve with dietary modifications, such as avoiding tomato sauce and pea protein powder. The patient has a history of bilateral shoulder surgeries, which occasionally result in numbness if positioned incorrectly. He attempted a push-up challenge, which aggravated his shoulder pain, leading to a decision to modify his physical activities. The patient also reports a history of tennis elbow, which has improved over time. He expresses concern about the potential recurrence of symptoms due to previous surgical interventions. [facility] Medical History Vitamin D deficiency Surgical History History of rotator cuff surgery (~01/2016) History of left knee surgery Status post arthroscopy of right shoulder Family History Mother No problems noted. 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 1. Little interest or pleasure in doing things: not at all 2. Feeling down, depressed, or hopeless: not at all 3. Trouble falling or staying asleep, or sleeping too much: not at all 4. Feeling tired or having little energy: not at all 5. Poor appetite or overeating: not at all 6. Feeling bad about yourself - or that you are a failure or have let yourself or your family down: not at all 7. Trouble concentrating on things, such as reading the newspaper or watching television: not at all 8. Moving or speaking so slowly that other people could have noticed. Or the opposite - being so fidgety or restless that you have been moving around a lot more than usual: not at all 9. Thoughts that you would be better off or of hurting yourself in some way: not at all Total score: 0 Depression Screening Interpretation: Negative Depression Screening Done: Yes 32101 - PHQ-9 Billing: Yes Source: Developed by Drs. Javier Dang, Arabella Mckeon, Adams Archibald and colleagues, with an educational shant from [employer]. Thrive Questionnaire Date Thrive assessed: 09/05/24 I am a: Patient What is your living situation today?: I have a steady place to live Within the past 12 months, did the food you bought not last and you didn't have the money to get more?: Never true Within the past 12 months, did you worry whether your food would run out before you got money to buy more?: Never true Do you have trouble paying for medicines?: No Do you have trouble getting transportation to medical appointments?: No Do you have trouble paying your heating and electricity bill?: No Do you have trouble taking care of your child, family member or friend?: No Do you have trouble with day-to-day activities such as bathing, preparing meals, shopping, managing finances, etc.?: No Are you currently unemployed and looking for a job?: No Are you interested in more education?: No Please select the resources that you would like help with: None Currently or been in a relationship where the following occur: No concerns reported THRIVE Score: 0 AUDIT C Alcohol Use Questionnaire (AUDIT-C) 1. How often do you have a drink containing alcohol?: Monthly or less 2. How many drinks containing alcohol do you have on a typical day when you are drinking?: 1 or 2 3. How often do you have six or more drinks on one occasion?: Never Total Score: 1 FLORENCIO-7 AMB Questionnaire FLORENCIO-7 Date FLORENCIO - 7 assessed: 09/05/24 Feeling nervous, anxious, or on edge: 0 = Not at all Not being able to stop or control worryin = Not at all Worrying too much about different things: 0 = Not at all Trouble relaxin = Not at all Being so restless that it is hard to sit still: 0 = Not at all Becoming easily annoyed or irritable: 0 = Not at all Feeling afraid as if something awful might happen: 0 = Not at all Total FLORENCIO-7 score (0-4 normal; 5-9 mild; 10-14 moderate; 15-21 severe): 0 Source: Developed by Drs. Javier Dang, Arabella Mckeon, Adams Archibald and colleagues, with an educational shant from [employer]. FLORENCIO-7 Assessment Billing FLORENCIO-7 Assessment Tool: FLORENCIO-7 Assessment 11053 Review of Systems Const Denies headache(s) Eyes Denies loss of vision ENT Denies vertigo, Denies dizziness, Denies headache(s) and Denies sore throat Card Denies chest pain, Denies leg edema and Denies lightheadedness Resp Denies cough, Denies hemoptysis and Denies wheezing GI Denies abdominal pain, Denies melena, Denies constipation, Reports heartburn (depending on what he eats), Denies diarrhea and Denies vomiting Reports change in libido, Denies dysuria, Denies urinary frequency and Denies urinary urgency Musc Reports arthralgias (both shoulders), Denies joint swelling, Reports numbness (both shoulders) and Denies tingling Neuro Denies Abnormal speech present, Denies behavioral changes, Denies vertigo, Denies dizziness, Denies headache(s), Denies loss of vision, Denies memory loss, Reports numbness (both shoulders) and Denies tingling Psych Denies anxiety, Denies behavioral changes, Reports change in libido, Denies depression, Denies memory loss and Denies panic attacks Endo Reports change in libido Onel/Lymph Denies easy bleeding and Denies easy bruising Aller/Immun Denies wheezing Physical exam (Primary Care) Vital Signs: Last Vital Signs Temp 97.3 F 09/05/24 14:33 Pulse 66 09/05/24 14:33 Resp 18 09/05/24 14:33 BP 102/60 09/05/24 14:33 Pulse Ox 95 09/05/24 14:33 Oxygen Delivery Method Room Air 09/05/24 14:33 BMI result Body Mass Index 24.8 Tobacco/Smoking Status: Tobacco use Status Tobacco use date assessed 09/05/24 09/05/24 14:42 Patient Tobacco Use Status Never used Tobacco 09/05/24 14:42 e-Cigarette/Vaping Use Never Used 09/05/24 14:42 PHQ-9: PHQ-9 Score PHQ-9: Total score 0 09/05/24 14:44 Depression Screening Interpretation: Negative Thrive Assessment: Date of Thrive Assessment Date Thrive assessed 09/05/24 09/05/24 14:42 Currently or been in a relationship where the following occur: No concerns reported Const General: healthy appearing, no acute distress, alert and awake Nutritional Appearance: well nourished Orientation/consciousness: oriented to person, oriented to place and oriented to time HENMT Ears: TM's normal bilaterally General nose exam: Normal nasal mucous membranes and turbinates present Eyes Conjunctivae: conjunctivae normal Sclerae: sclerae normal Pupils: Equal, round and reactive pupils present Neck Neck: Yes no lymphadenopathy and Yes no JVD Thyroid: Thyroid normal Carotids: no bruits Resp Effort & Inspection: normal respiratory effort and not tachypneic Auscultation: no crackles, no rales, no rhonchi and no wheezes Cardio Rate: regular rate Rhythm: regular rhythm Heart sounds: no murmurs and normal S1 and S2 GI Palpation (GI): Soft to palpation, nontender, no hepatomegaly and no splenomegaly Auscultation: normal bowel sounds Skin General skin exam: no rashes or lesions noted and dry skin Neuro General: oriented to person, oriented to place and oriented to time Cranial nerves: Yes Equal, round and reactive pupils present Speech: No Abnormal speech present Gait exam (Neuro): Normal gait present Motor exam (neuro): no tremor noted Deep tendon reflexes (DTR's): Right triceps reflex intensity grade: 2+, Left triceps reflex intensity grade: 2+, Rt Biceps (C5, C6): 2+, Left biceps reflex intensity grade: 2+, Right brachioradialis reflex intensity grade: 2+, Left brachioradialis reflex intensity grade: 2+, Right patellar reflex intensity grade: 2+ and Left patellar reflex intensity grade: 2+ Extrem Right upper extremity: full ROM and shoulder/upper arm Details: no tenderness and no swelling Left upper extremity: full ROM and shoulder/upper arm Details: no tenderness and no swelling Right lower extremity: full ROM; no edema Left lower extremity: full ROM; no edema Psych Mental Status: mental status grossly normal Speech and movement: Normal speech and movement present Affect: normal affect Attitude: cooperative Thought process: Normal thought process present Coding Level of Care Code Est Pt Prev Care 40-64y(18762) Diagnoses Annual physical exam Z00.00 Vitamin D deficiency E55.9 Right lateral epicondylitis M77.11 Left shoulder pain, unspecified chronicity M25.512 Chronicity: unspecified Decreased libido R68.82 Right shoulder pain, unspecified chronicity M25.511 Chronicity: unspecified Additional Codes PHQ-9 - 50849 - PHQ-9 Billing: Yes ([id number]) FLORENCIO-7 Assessment Billing - FLORENCIO-7 Assessment Tool: FLORENCIO-7 Assessment 06673 ([id number]) Time Spent (min) 39 Assessment & Plan Assessment & Plan (1) Annual physical exam: Code(s): Z00.00 - Encounter for general adult medical examination without abnormal findings Category: Medical (2) Vitamin D deficiency: Code(s): E55.9 - Vitamin D deficiency, unspecified Category: Medical (3) Right lateral epicondylitis: Code(s): M77.11 - Lateral epicondylitis, right elbow Category: Medical (4) Left shoulder pain: Code(s): M25.512 - Pain in left shoulder Category: Medical Qualifiers: Chronicity: unspecified Qualified Code(s): M25.512 - Pain in left shoulder (5) Decreased libido: Code(s): R68.82 - Decreased libido Category: Medical (6) Right shoulder pain: Code(s): M25.511 - Pain in right shoulder Category: Medical Qualifiers: Chronicity: unspecified Qualified Code(s): M25.511 - Pain in right sh oulder Plan Preventative guidelines reviewed with the patient. Labs ordered to complete annual evaluation. The patient will continue to monitor dietary triggers for gastroesophageal reflux disease GERD) and avoid foods that exacerbate symptoms, such as tomato sauce and pea protein powder. If symptoms persist or worsen, consideration for a trial of omeprazole or further evaluation with endoscopy may be warranted. For bilateral shoulder pain, the patient is advised to modify physical activities to prevent exacerbation of symptoms. Should symptoms worsen, re- evaluation and imaging may be considered to assess for any structural changes post-surgery. The patient is encouraged to maintain regular physical activity within comfort limits and to continue with preventative care measures, including regular screenings and health maintenance. Will add testosterone in regular labs to further evaluate change in libido Patient was informed and verbally consented to the use of an ambient scribe for clinic note documentation during this visit. Orders: Orders Lipid Panel 09/05/24 Z13.1 - Encounter for screening for diabetes mellitus, Z - Encounter for screening for other suspected endocrine disorder, E55.9 - Vitamin D deficiency, unspecified, M25.521 - Pain in right elbow, M25.512 - Pain in left shoulder, R53.83 - Other fatigue UA CC w/rflx Micro + Cult 09/05/24 Z13.1 - Encounter for screening for diabetes mellitus, Z. - Encounter for screening for other suspected endocrine disorder, E55.9 - Vitamin D deficiency, unspecified, M25.521 - Pain in right elbow, M25.512 - Pain in left shoulder, R53.83 - Other fatigue Vitamin B12 and Folate 09/05/24 Z13.1 - Encounter for screening for diabetes mellitus, Z13.29 - Encounter for screening for other suspected endocrine disorder, E55.9 - Vitamin D deficiency, unspecified, M25.521 - Pain in right elbow, M25.512 - Pain in left shoulder, R53.83 - Other fatigue Complete Blood Count Auto Diff 09/05/24 Z13.1 - Encounter for screening for diabetes mellitus, Z13.29 - Encounter for screening for other suspected endocrine disorder, E55.9 - Vitamin D deficiency, unspecified, M25.521 - Pain in right elbow, M25.512 - Pain in left shoulder, R53.83 - Other fatigue Comprehensive Blue. Panel Fast 09/05/24 Z13.1 - Encounter for screening for diabetes mellitus, Z13.29 - Encounter for screening for other suspected endocrine disorder, E55.9 - Vitamin D deficiency, unspecified, M25.521 - Pain in right elbow, M25.512 - Pain in left shoulder, R53.83 - Other fatigue TSH reflex Free T4 09/05/24 Z13.1 - Encounter for screening for diabetes mellitus, Z13.29 - Encounter for screening for other suspected endocrine disorder, E55.9 - Vitamin D deficiency, unspecified, M25.521 - Pain in right elbow, M25.512 - Pain in left shoulder, R53.83 - Other fatigue Vitamin D 25-OH Total 09/05/24 Z13.1 - Encounter for screening for diabetes mellitus, Z13.29 - Encounter for screening for other suspected endocrine disorder, E55.9 - Vitamin D deficiency, unspecified, M25.521 - Pain in right elbow, M25.512 - Pain in left shoulder, R53.83 - Other fatigue PSA,Total (Free>4and<10) 09/05/24 Z13.1 - Encounter for screening for diabetes mellitus, Z13.29 - Encounter for screening for other suspected endocrine disorder, E55.9 - Vitamin D deficiency, unspecified, M25.521 - Pain in right elbow, M25.512 - Pain in left shoulder, R53.83 - Other fatigue Testosterone, Free/Total 09/05/24 Z13.1 - Encounter for screening for diabetes mellitus, Z13.29 - Encounter for screening for other suspected endocrine disorder, E55.9 - Vitamin D deficiency, unspecified, M25.521 - Pain in right elbow, M25.512 - Pain in left shoulder, R53.83 - Other fatigue
--- OUTSIDE RECORDS SUMMARY | 2024-09-05 15:08 | XMS_ITS | Data Portability ---
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 Plan of Treatment Reminders Order Date Submit Date Provider Last Modified By Organization Details Last Modified Time Details Appointments None recorded. Lab None recorded. Referral None recorded. Procedures None recorded. Surgeries None recorded. Imaging None recorded. Medication Orders Polytrim 10,000 unit-1 mg/mL eye drops 2022 023 [id number], [address] [place], [address], 11:59:35 Patient TargetsNo targets recorded. Patient Instructions Encounter Date Encounter Id Patient Instructions Last Modified By Organization Details Last Modified Time 01/11/2023 [id number] Use prescribed antibiotic eye drops or ointment as directed to treat the infection. Apply a warm compress (towel soaked in warm water) to the affected eye 3 to 4 times a day. Do this just before applying medicine to the eye. Use a warm, wet cloth to wipe away crusting of the eyelids in the morning. This is caused by mucus drainage during the night. You may also use saline irrigating solution or artificial tears to rinse away mucus in the eye. Do not put a patch over the eye. Wash your hands before and after touching the infected eye. This is to prevent spreading the infection to the other eye, and to other people. Don't share your towels or washcloths with others. You may use acetaminophen or ibuprofen to control pain, unless another medicine was prescribed. Talk with your healthcare provider before using these medicines if you have chronic liver or kidney disease. Also talk with your provider if you have ever had a stomach ulcer or digestive bleeding. Don't wear contact lenses until your eyes have healed and all symptoms are gone. Follow-up care Follow up with your healthcare provider, or as advised. When to seek medical advice Call your healthcare provider right away if any of these occur: Worsening vision Increasing pain in the eye Increasing swelling or redness of the eyelid Redness spreading around the eye [email or web address] Not available 01/11/2023 11:59:40 Reason for Referral None Reported. Medical Equipment None Reported. Allergies No known drug allergies Medications Name Sig Start Date Stop Date Status Note LastModified by Organization Details LastModified Time fluorouracil 5 % topical cream APPLY ONCE DAILY TO FACE FOR 2-3 WEEKS TOLERATED. active Not Available Not Available N ot Available Polytrim 10,000 unit-1 mg/mL eye drops INSTILL 1 DROP INTO AFFECTED EYE(S) BY OPHTHALMIC ROUTE EVERY 6 HOURS x 7 days. 2022 active Not Available Not Available Not Avai lable Vitals Date Recorded Body height Body mass index (BMI) Body weight Respiratory rate Body temperature Oxygen saturation Oxygen saturation in Arterial blood by Pulse oximetry Heart rate Systolic And Diastolic Provider Name and Address Organization Details Last Updated DateTime 3 177.8 cm 23.7 kg/m2 70676.7 4 g 16 /min 96.2 [degF] 98 % 98 % 70 /min 110/75 mm[Hg] YELENA KRUGER [facility] - [facility] 3 11:48:05 Social History Question Answer Notes LastModified by Organization D etails LastModified Time Have You Recently Traveled Abroad? No Information not available 01/11/2023 Sex: Unknown Functional Status Question Answer Note LastModified by Organizat ion Details LastModified Time How many times per week do you consume alcohol? Less than 1 time per week [email or web address] Information not available 01/11/2023 Do you use any illicit or recreational drugs? No [email or web address] Information not available 01/11/2023 Do you or have you ever used any other forms of tobacco or nicotine? No [email or web address] Information not available 01/11/2023 What is your level of alcohol consumption? Occasional [email or web address] Information not available 01/11/2023 Mental Status None recorded. Family History Relationship Description Onset Age of this Age Resolved Age Notes LastModified by Organization Details LastModified Time Father No current problems or disability [email or web address] Not available 01/11 11:45:20 Mother No current problems or disability [email or web address] Not available 01/11 11:45:20 Medical History Condition Response Gout N Cancer, liver N Thyroid disorder N Hyperthyroidism N Rheumatoid arthritis N GI bleeding N Irritable bowel syndrome N Depression N COPD N Tinnitus, unspecified ear N Pneumonia N Cancer, uterus N Mental disorder, NOS N Headaches/Migraines N Insomia N Alzheimer's disease N Anxiety Disorder N Obesity N Arthritis N Cancer N Stroke N Alcohol abuse N Liver disease N Cancer, bladder N Allergy Food/Medication N Peripheral artery disease N Oxygen dependence N Fibromyalgia N Atrial fibrillation N Tinnitus, right ear N Kidney Disease N Deep vein thrombosis DVT leg N Migraine N Disorder of circulatory system N Anxiety N Cancer, brain N Disease of pancreas N Cancer, lung N Eating disorder, unspecified N Cancer, colon N Crohn's disease N Cancer, cervical N N Cancer, breast N Cancer, skin N Coagulation defect, unspecified N Cataract N Asthma N Congestive heart failure (CHF) N Substance Abuse N Vertigo N Coronary artery disease N Pulmonary Embolism N Cancer, pancreas N Tobacco use disorder N Disease of lung N Allergic rhinitis N Joint disorder, unspecified N Menopause N Drug dependence, unspecified N Back disorder N Hypothyroidism N Disorder kidney N Sickle Cell Anemia N Cancer, ovarian N Santiago's Palsy N Disorder of eye N Cancer, prostate N Allergy Seasonal N Drug abuse N Disorder of urinary system N Disorder of lymph system N Radiculopathy, site unspecified N Myoneural disorder, unspecified N Nervous system disorder N ADHD N High Cholesterol N Post-herpetic neuralgia N Aneurysm, cerebral N Tinnitus, left ear N Prostate hypertrophy, benign N Disorder of skin/subcutaneous N Osteoarthritis N Disorder of ear N Ovarian cysts N Parkinson's disease N Low back pain N Carpal tunnel syndrome N Disorder of muscle N Anemia N Kidney stone N Bipolar affective disorder N Leukemia, unspecified N Diabetes N Endocrine disorder N Disorder involving the immune mechanism N Seizure N Hyperlipidemia N Lymphoma N Emphysema, unspecified N Eczema N Diverticulitis N Dementia N Lupus N Seizure disorder N Reflux/GERD N Sleep Apnea N Cancer, bone N Disorder of thyroid N Cardiac arrhythmia, unspecified N Disorder of bone N Heart Disease N Liver Disorder N Disorder of brain N Hypertension N Aneurysm, aortic N Osteoporosis N Gastroesophageal reflux (GERD) N Disease of digestive system, unspecified N Past Encounters Encounter ID Performer Location Encounter Start Date Encounter Closed Date Diagnosis/Indication Diagnosis SNOMED-CT Code Diagnosis ICD10 Code Diagnosis Note [id number] [facility] [address] [place] [address] 08/23/2021 19:08:13 08/24/2021 20:37:06 [id number] [place] [address] [place] [address] 01/11/2023 11:31:54 01/11/2023 12:06:35 Abrasion of left cornea [id number] S05.02XA Health Concerns Section Related Observation LastModified by Organization Detai ls LastModified Time None Recorded Concern Status LastModified by Organization Details LastModified Time None Recorded Advance Directives Directive None Recorded Payers Insurance Date Sequence Insurance Name Policy Number Policy French Covered Member ID French Member ID Guarantor Name 01/18/2023 1 [facility] [id number] Kenny Castañeda [id number] Kenny Castañeda
== END 2024-09-05 15:12 | disposition home or self-care (01) ==
LOC: HO.HMCH 14:30
PROVIDERS: PCP Internal Medicine
DX: Z00.00 Encounter for general adult medical examination without abnormal findings (principal); E55.9 Vitamin D deficiency, unspecified; M77.11 Lateral epicondylitis, right elbow; M25.512 Pain in left shoulder; R68.82 Decreased libido; M25.511 Pain in right shoulder

== ENCOUNTER → 2024-09-05 14:29 | Outpatient (BNVA) | payer OTHER, SELFPAY | PROVIDERS: PCP Internal Medicine | DX: Z00.00 Encounter for general adult medical examination without abnormal findings (principal); E55.9 Vitamin D deficiency, unspecified; M77.11 Lateral epicondylitis, right elbow; M25.512 Pain in left shoulder; R68.82 Decreased libido; M25.511 Pain in right shoulder; Z13.31 Encounter for screening for depression; Z13.39 Encounter for screening examination for other mental health and behavioral disorders | CPT/HCPCS: 96127 ==

== ENCOUNTER 2024-09-18 09:21 | Outpatient (REF) | payer OTHER, SELFPAY ==
[2024-09-18 09:36] LABS: MANUAL DIFF FLAG NO
--- OUTSIDE RECORDS SUMMARY | 2024-09-18 09:48 | XMS_ITS ---
Author Organization Unknown ENCOUNTERS Encounter Performer Location Date Diagnosis Diagnosis Status Outpatient [address] [address] [id number] *H Outpatient [address] [address] [id number] *H *Note: Encounters from your own facility or health system may be excluded. Allergies, Adverse Reactions, Alerts Allergen Type Severity Identification Date Medications Name Date Quantity Days Supplied GPI Number
[2024-09-18 10:20] LABS: Hematocrit 45.0 % (42.0-52.0); Hemoglobin 14.9 g/dl (14.0-18.0); Imm Gran Abs Auto 0.01 X10*3/uL (0.00-0.03); Imm Gran Pct Auto 0.3 % (0.0-0.4); Lymphocytes Absolute Auto 1.1 X10*3/uL (1.2-4.9); Mean Corpuscular HGB Conc 33.1 g/dl (31.0-36.0); Mean Corpuscular Hemoglobin 31.0 pg (27.0-33.0); Mean Corpuscular Volume 93.8 fL (80.0-98.0); NRBC Abs Auto 0.000 X10*3/uL (0.0-0.012); NRBC Pct Auto 0.0 /100WBC (0.0-0.2); Platelet Count 202 X10*3/uL (160-400); Red Blood Count 4.80 X10*6/uL (4.60-5.80); White Blood Count 3.9 X10*3/uL (4.8-10.8)
[2024-09-18 10:34] LABS: Appearance Urine Clear; Glucose Urine UA Negative (Negative); PH 5.5 (5.0-9.0); Specific Gravity - Urine >= 1.030 (1.005-1.025)
[2024-09-18 11:04] LABS: Alanine Aminotransferase 17 U/L (0-40); Albumin Level 4.5 g/dL (3.5-5.0); Alkaline Phosphatase 80 U/L (39-117); Anion Gap 9 (12-20); Aspartate Amino Transferase 20 U/L (5-37); Blood Urea Nitrogen 19 mg/dL (9-16); Calcium 9.0 mg/dL (8.4-10.2); Carbon Dioxide 29 mmol/L (22-29); Chloride 110 mmol/L (96-108); Cholesterol 159 mg/dL (<200); Estimated Glomerular Filt Rate > 60; HDL Cholesterol 42 mg/dL (>40); Potassium 4.1 mmol/L (3.3-5.1); Sodium 144 mmol/L (135-145); Total Protein 7.1 g/dL (6.5-8.0); Triglycerides 52 mg/dL (<150)
[2024-09-18 11:15] LABS: PSA,Total (Free>4and<10) 1.83 ng/mL (0.00-4.00)
[2024-09-18 11:28] LABS: Folate 12.0 ng/mL (> or = 4.0); Vitamin B12 492 pg/mL (200-900)
[2024-09-22 20:44] LABS: Testosterone, Free 59.1 pg/mL (35.0-155.0)
== END 2024-09-18 09:22 | disposition home or self-care (01) ==
LOC: HO.LAB 09:21
PROVIDERS: PCP Internal Medicine; Visit Provider Internal Medicine
DX: Z13.1 Encounter for screening for diabetes mellitus (principal); Z13.6 Encounter for screening for cardiovascular disorders; Z12.5 Encounter for screening for malignant neoplasm of prostate; Z13.29 Encounter for screening for other suspected endocrine disorder; E55.9 Vitamin D deficiency, unspecified; M25.521 Pain in right elbow; M25.512 Pain in left shoulder; R53.83 Other fatigue
CPT/HCPCS: 36415; 80053; 80061; 81003; 82306; 82607; 82746; 84153; 84402; 84403; 84443; 85025